=== PATIENT | female | born 1940 | race Caucasian/White ===

== ENCOUNTER 2018-10-02 20:10 | Inpatient (IN) | payer MEDICARE ==
[~2018-10-02] VITALS: Ht 170.2 cm; Wt 65.8 kg
[2018-10-02] MEDS ORDERED: Z GUARD REMEDY PASTE 57 GM TUBE TOP PRN (20:15)
[2018-10-02] MEDS ORDERED: POLY255P19 PO (20:28)
[2018-10-02] MEDS ORDERED: BRIM10DR6 LEFTEYE (20:28)
[2018-10-02] MEDS ORDERED: SENN-22 PO (20:28)
[2018-10-02] MEDS ORDERED: KETO15VI5 IV (20:28)
[2018-10-02] MEDS ORDERED: LATA2.5D7 EACHEYE (20:28)
[2018-10-02] MEDS ORDERED: ASPI-612 PO (20:28)
[2018-10-02 20:38] VITALS: BP 98/40
[2018-10-02] MEDS ORDERED: POLYETHYLENE GLYCOL 3350 238 GM POWDER PO PRN (21:00)
[2018-10-03] MEDS ORDERED: POLYETHYLENE GLYCOL 3350 238 GM POWDER PO PRN (07:15)
[2018-10-03] MEDS ORDERED: MIRALAX 17 GM POWD.PACK PO PRN (08:00)
[2018-10-03 08:54] VITALS: BP 92/43
[2018-10-03] MEDS: BRIMONIDINE 0.2% OPHT DROP 10 ML BOTTLE LEFTEYE SCH ×2 (09:08→17:35)
[2018-10-03] MEDS: LATANOPROST OPHT DROP 2.5 ML BOTTLE EACHEYE SCH (09:08)
[2018-10-03] MEDS: SENNOSIDES/DOCUSATE SODIUM TABLET PO SCH (09:09)
[2018-10-03] MEDS: ASPIRIN 325 MG TABLET PO SCH (09:09)
[2018-10-03] MEDS ORDERED: TRAMADOL HCL 50 MG TABLET PO PRN (09:45)
[2018-10-03 16:24] VITALS: BP_SYST 86; BP_SYST 96; BP_DIAS 43
[2018-10-03 20:29] VITALS: BP 108/54
[2018-10-03] MEDS: MELATONIN 3 MG TABLET PO SCH (21:00)
[2018-10-04 06:20] VITALS: BP 89/45
[2018-10-04 08:02] VITALS: BP 95/40
[2018-10-04] MEDS: LATANOPROST OPHT DROP 2.5 ML BOTTLE EACHEYE SCH (08:18)
[2018-10-04] MEDS: BRIMONIDINE 0.2% OPHT DROP 10 ML BOTTLE LEFTEYE SCH ×2 (08:18→17:02)
[2018-10-04] MEDS: SENNOSIDES/DOCUSATE SODIUM TABLET PO SCH (08:18)
[2018-10-04] MEDS: ASPIRIN 325 MG TABLET PO SCH (08:49)
[2018-10-04] MEDS: ACETAMINOPHEN 325 MG TABLET PO PRN (08:49)
[2018-10-04] MEDS: NEOMY/BACITRAC/POLYMI OINT 28.35 GM TUBE TOP SCH ×2 (12:58→20:30)
[2018-10-04 16:54] VITALS: BP 103/53
[2018-10-04 20:11] VITALS: BP 91/54
[2018-10-04] MEDS: MELATONIN 3 MG TABLET PO SCH (20:31)
[2018-10-05 05:27] VITALS: BP 103/45
[2018-10-05 07:24] LABS: BASOPHILS # (AUTO) 0.1 K/uL (0.0-8.0); EOSINOPHILS # (AUTO) 0.2 K/uL (0.0-0.7); EOSINOPHILS % (AUTO) 3.3 % (0.0-7.0); HEMOGLOBIN 10.7 g/dL (10.9-14.3); LYMPHOCYTES # (AUTO) 0.7 K/uL (20.0-40.0); LYMPHOCYTES % (AUTO) 12.7 % (20.5-51.5); MEAN CORPUSCULAR HEMOGLOBIN 31.7 uug (24.7-32.8); MEAN CORPUSCULAR HGB CONC 33 g/dL (32.3-35.6); MEAN CORPUSCULAR VOLUME 95.3 fL (75.5-95.3); MONOCYTES # (AUTO) 0.7 K/uL (2.0-10.0); MONOCYTES % (AUTO) 13.1 % (0.0-11.0); NEUTROPHILS # (AUTO) 3.7 K/uL (1.8-8.9); NEUTROPHILS % (AUTO) 69.9 % (38.5-71.5); PLATELET COUNT (AUTO) 207 K/uL (179-408); RED BLOOD CELL COUNT(AUTO) 3.36 MIL/uL (3.63-4.92); WHITE BLOOD COUNT (AUTO) 5.3 K/uL (3.8-11.8)
[2018-10-05 07:40] LABS: IRON, SERUM 37 ug/dL (50-175)
[2018-10-05 08:29] LABS: ALANINE AMINOTRANSFERASE 47 U/L (14-59); ALKALINE PHOSPHATASE 150 U/L (50-136); ASPARTATE AMINOTRANSFERASE 43 U/L (15-37); BILIRUBIN,TOTAL 0.8 mg/dL (0.2-1.0); CARBON DIOXIDE 26 mmol/L (21-32); CHLORIDE 105 mmol/L (98-107); CHOLESTEROL 189 mg/dL (<200); CREATININE 0.6 mg/dL (0.6-1.3); GLUCOSE 93 mg/dL (74-106); HDL CHOLESTEROL 57 mg/dL (40-60); PHOSPHOROUS 3.9 mg/dL (2.5-4.9); POTASSIUM 3.9 mmol/L (3.5-5.1); TOTAL PROTEIN, SERUM 6.2 g/dL (6.4-8.2); TRIGLYCERIDES 101 MG/DL (30-150); UREA NITROGEN, BLOOD 16 mg/dL (7-18)
[2018-10-05] MEDS: SENNOSIDES/DOCUSATE SODIUM TABLET PO SCH (08:32)
[2018-10-05] MEDS: ASPIRIN 325 MG TABLET PO SCH (08:32)
[2018-10-05] MEDS: BRIMONIDINE 0.2% OPHT DROP 10 ML BOTTLE LEFTEYE SCH ×2 (08:33→17:02)
[2018-10-05] MEDS: LATANOPROST OPHT DROP 2.5 ML BOTTLE EACHEYE SCH (08:34)
[2018-10-05] MEDS: NEOMY/BACITRAC/POLYMI OINT 28.35 GM TUBE TOP SCH ×2 (08:36→20:47)
[2018-10-05 08:56] LABS: THYROID STIMULATING HORMONE 3.807 mIU/mL (0.358-3.740)
[2018-10-05 09:02] VITALS: BP 114/51
[2018-10-05 16:43] VITALS: BP 94/48
[2018-10-05 19:45] VITALS: BP 106/64
[2018-10-05] MEDS: ATORVASTATIN 10 MG TABLET PO SCH (20:46)
[2018-10-05] MEDS: MELATONIN 3 MG TABLET PO SCH (20:46)
[2018-10-06 06:56] LABS: *BILIRUBIN,URIN NEGATIVE (NEGATIVE); *BLOOD, URINE NEGATIVE (NEGATIVE); *CLARITY,URINE CLEAR (CLEAR); *COLOR,URINE YELLOW (YELLOW); *KETONES,URINE NEGATIVE (NEGATIVE); *UROBILINOGEN,URINE 0.2 E.U./dl (NORMAL); LEUKOCYTE ESTERASE ,URINE NEGATIVE (NEGATIVE); NITRITE, URINE NEGATIVE (NEGATIVE); PH,URINE 5.5 (5.0-8.0); UGLUCOSE NEGATIVE (NEGATIVE)
[2018-10-06 07:24] VITALS: BP 106/46
[2018-10-06] MEDS: ASPIRIN 325 MG TABLET PO SCH (08:27)
[2018-10-06] MEDS: NEOMY/BACITRAC/POLYMI OINT 28.35 GM TUBE TOP SCH ×2 (08:28→20:08)
[2018-10-06] MEDS: BRIMONIDINE 0.2% OPHT DROP 10 ML BOTTLE LEFTEYE SCH ×2 (08:28→17:20)
[2018-10-06] MEDS: LATANOPROST OPHT DROP 2.5 ML BOTTLE EACHEYE SCH (08:28)
[2018-10-06] MEDS: SENNOSIDES/DOCUSATE SODIUM TABLET PO SCH (08:28)
[2018-10-06] MEDS: ACETAMINOPHEN 325 MG TABLET PO PRN ×2 (08:30→22:25)
[2018-10-06 09:30] VITALS: BP 98/50
[2018-10-06 18:36] VITALS: BP 117/59
[2018-10-06 19:46] VITALS: BP 104/42
[2018-10-06] MEDS: ATORVASTATIN 10 MG TABLET PO SCH (20:05)
[2018-10-06] MEDS: MELATONIN 3 MG TABLET PO SCH (20:06)
[2018-10-07 05:50] VITALS: BP 110/46
[2018-10-07 08:00] VITALS: BP 109/49
[2018-10-07] MEDS: ASPIRIN 325 MG TABLET PO SCH (08:28)
[2018-10-07] MEDS: SENNOSIDES/DOCUSATE SODIUM TABLET PO SCH (08:28)
[2018-10-07] MEDS: LATANOPROST OPHT DROP 2.5 ML BOTTLE EACHEYE SCH (08:29)
[2018-10-07] MEDS: BRIMONIDINE 0.2% OPHT DROP 10 ML BOTTLE LEFTEYE SCH ×2 (08:29→17:23)
[2018-10-07] MEDS: NEOMY/BACITRAC/POLYMI OINT 28.35 GM TUBE TOP SCH ×2 (08:31→21:01)
[2018-10-07 16:09] VITALS: BP 94/51
[2018-10-07 20:19] VITALS: BP 103/56
[2018-10-07] MEDS: ATORVASTATIN 10 MG TABLET PO SCH (21:00)
[2018-10-07] MEDS: MELATONIN 3 MG TABLET PO SCH (21:00)
[2018-10-08 05:43] VITALS: BP 94/55
[2018-10-08 08:00] VITALS: BP 100/58
[2018-10-08] MEDS: LATANOPROST OPHT DROP 2.5 ML BOTTLE EACHEYE SCH (08:40)
[2018-10-08] MEDS: ACETAMINOPHEN 325 MG TABLET PO PRN (08:40)
[2018-10-08] MEDS: BRIMONIDINE 0.2% OPHT DROP 10 ML BOTTLE LEFTEYE SCH ×2 (08:40→17:00)
[2018-10-08] MEDS: ASPIRIN 325 MG TABLET PO SCH (08:41)
[2018-10-08] MEDS: NEOMY/BACITRAC/POLYMI OINT 28.35 GM TUBE TOP SCH ×2 (08:42→20:52)
[2018-10-08] MEDS: SENNOSIDES/DOCUSATE SODIUM TABLET PO SCH (09:21)
[2018-10-08 19:40] VITALS: BP 113/46
[2018-10-08] MEDS: MELATONIN 3 MG TABLET PO SCH (20:52)
[2018-10-08] MEDS: ATORVASTATIN 10 MG TABLET PO SCH (20:52)
[2018-10-09 07:04] VITALS: BP 101/41
[2018-10-09 08:00] VITALS: BP 120/64
[2018-10-09] MEDS: LATANOPROST OPHT DROP 2.5 ML BOTTLE EACHEYE SCH (08:08)
[2018-10-09] MEDS: ASPIRIN 325 MG TABLET PO SCH (08:10)
[2018-10-09] MEDS: SENNOSIDES/DOCUSATE SODIUM TABLET PO SCH (08:10)
[2018-10-09] MEDS: NEOMY/BACITRAC/POLYMI OINT 28.35 GM TUBE TOP SCH ×2 (08:13→20:21)
[2018-10-09] MEDS: BRIMONIDINE 0.2% OPHT DROP 10 ML BOTTLE LEFTEYE SCH ×2 (08:29→18:25)
[2018-10-09 16:00] VITALS: BP 116/66
[2018-10-09 19:31] VITALS: BP 91/44
[2018-10-09 19:40] VITALS: BP 103/61
[2018-10-09] MEDS: MELATONIN 3 MG TABLET PO SCH (20:21)
[2018-10-09] MEDS: ATORVASTATIN 10 MG TABLET PO SCH (20:21)
[2018-10-10 05:48] VITALS: BP 109/44
[2018-10-10 08:00] VITALS: BP 101/50
[2018-10-10] MEDS: SENNOSIDES/DOCUSATE SODIUM TABLET PO SCH (08:08)
[2018-10-10] MEDS: ACETAMINOPHEN 325 MG TABLET PO PRN (08:08)
[2018-10-10] MEDS: BRIMONIDINE 0.2% OPHT DROP 10 ML BOTTLE LEFTEYE SCH ×2 (08:08→16:57)
[2018-10-10] MEDS: LATANOPROST OPHT DROP 2.5 ML BOTTLE EACHEYE SCH (08:09)
[2018-10-10] MEDS: NEOMY/BACITRAC/POLYMI OINT 28.35 GM TUBE TOP SCH ×2 (08:09→20:20)
[2018-10-10] MEDS: ASPIRIN 325 MG TABLET PO SCH (09:57)
[2018-10-10 16:17] VITALS: BP 113/52
[2018-10-10 20:19] VITALS: BP 102/44
[2018-10-10] MEDS: MELATONIN 3 MG TABLET PO SCH (20:20)
[2018-10-10] MEDS: ATORVASTATIN 10 MG TABLET PO SCH (20:20)
[2018-10-11 05:21] VITALS: BP 108/52
[2018-10-11] MEDS: SENNOSIDES/DOCUSATE SODIUM TABLET PO SCH (08:54)
[2018-10-11] MEDS: ASPIRIN 325 MG TABLET PO SCH (08:54)
[2018-10-11] MEDS: BRIMONIDINE 0.2% OPHT DROP 10 ML BOTTLE LEFTEYE SCH ×2 (08:56→17:59)
[2018-10-11] MEDS: NEOMY/BACITRAC/POLYMI OINT 28.35 GM TUBE TOP SCH ×2 (08:56→20:33)
[2018-10-11] MEDS: LATANOPROST OPHT DROP 2.5 ML BOTTLE EACHEYE SCH (08:56)
[2018-10-11 09:00] VITALS: BP 91/39
[2018-10-11 17:00] VITALS: BP 116/40
[2018-10-11 19:30] VITALS: BP 102/55
[2018-10-11] MEDS: MELATONIN 3 MG TABLET PO SCH (20:33)
[2018-10-11] MEDS: ATORVASTATIN 10 MG TABLET PO SCH (20:33)
[2018-10-12 06:04] VITALS: BP 99/49
[2018-10-12] MEDS: SENNOSIDES/DOCUSATE SODIUM TABLET PO SCH (08:34)
[2018-10-12] MEDS: BRIMONIDINE 0.2% OPHT DROP 10 ML BOTTLE LEFTEYE SCH ×2 (08:34→17:23)
[2018-10-12] MEDS: ASPIRIN 325 MG TABLET PO SCH (08:34)
[2018-10-12] MEDS: NEOMY/BACITRAC/POLYMI OINT 28.35 GM TUBE TOP SCH ×2 (08:35→20:16)
[2018-10-12] MEDS: LATANOPROST OPHT DROP 2.5 ML BOTTLE EACHEYE SCH (08:35)
[2018-10-12 09:16] VITALS: BP 110/43
[2018-10-12 15:54] VITALS: BP 103/54
[2018-10-12 19:35] VITALS: BP 103/60
[2018-10-12] MEDS: MELATONIN 3 MG TABLET PO SCH (20:15)
[2018-10-12] MEDS: ATORVASTATIN 10 MG TABLET PO SCH (20:15)
[2018-10-13 06:24] VITALS: BP 97/52
[2018-10-13 08:02] VITALS: BP 101/41
[2018-10-13] MEDS: SENNOSIDES/DOCUSATE SODIUM TABLET PO SCH (08:23)
[2018-10-13] MEDS: ASPIRIN 325 MG TABLET PO SCH (08:29)
[2018-10-13] MEDS: BRIMONIDINE 0.2% OPHT DROP 10 ML BOTTLE LEFTEYE SCH ×2 (08:30→16:54)
[2018-10-13] MEDS: NEOMY/BACITRAC/POLYMI OINT 28.35 GM TUBE TOP SCH ×2 (08:30→20:07)
[2018-10-13] MEDS: LATANOPROST OPHT DROP 2.5 ML BOTTLE EACHEYE SCH (08:30)
[2018-10-13] MEDS: ACETAMINOPHEN 325 MG TABLET PO PRN (08:33)
[2018-10-13 15:56] VITALS: BP 100/51
[2018-10-13] MEDS: ATORVASTATIN 10 MG TABLET PO SCH (20:07)
[2018-10-13] MEDS: MELATONIN 3 MG TABLET PO SCH (20:07)
[2018-10-13 20:29] VITALS: BP 98/45
[2018-10-14 06:07] VITALS: BP 96/45
[2018-10-14] MEDS: ASPIRIN 325 MG TABLET PO SCH (09:00)
[2018-10-14] MEDS: NEOMY/BACITRAC/POLYMI OINT 28.35 GM TUBE TOP SCH ×2 (09:00→20:32)
[2018-10-14] MEDS: SENNOSIDES/DOCUSATE SODIUM TABLET PO SCH (09:00)
[2018-10-14] MEDS: BRIMONIDINE 0.2% OPHT DROP 10 ML BOTTLE LEFTEYE SCH ×2 (09:56→17:38)
[2018-10-14] MEDS: ACETAMINOPHEN 325 MG TABLET PO PRN (12:49)
[2018-10-14 17:00] VITALS: BP 114/39
[2018-10-14 17:03] VITALS: BP 94/38
[2018-10-14] MEDS: CALCIUM CARBONATE 500 MG TAB.CHEW PO PRN (19:12)
[2018-10-14 19:45] VITALS: BP 100/44
[2018-10-14] MEDS: MELATONIN 3 MG TABLET PO SCH (20:56)
[2018-10-14] MEDS: ATORVASTATIN 10 MG TABLET PO SCH (20:56)
[2018-10-14] MEDS: LATANOPROST OPHT DROP 2.5 ML BOTTLE EACHEYE SCH (20:58)
[2018-10-15 06:40] VITALS: BP 107/46
[2018-10-15] MEDS: BRIMONIDINE 0.2% OPHT DROP 10 ML BOTTLE LEFTEYE SCH ×2 (08:26→17:09)
[2018-10-15] MEDS: ASPIRIN 325 MG TABLET PO SCH (08:26)
[2018-10-15] MEDS: NEOMY/BACITRAC/POLYMI OINT 28.35 GM TUBE TOP SCH ×2 (08:27→20:13)
[2018-10-15] MEDS: CALCIUM CARBONATE 500 MG TAB.CHEW PO PRN (08:27)
[2018-10-15] MEDS: SENNOSIDES/DOCUSATE SODIUM TABLET PO SCH (08:27)
[2018-10-15 09:00] VITALS: BP 96/56
[2018-10-15 17:53] VITALS: BP 123/63
[2018-10-15 19:49] VITALS: BP 99/48
[2018-10-15] MEDS: MELATONIN 3 MG TABLET PO SCH (20:12)
[2018-10-15] MEDS: ATORVASTATIN 10 MG TABLET PO SCH (20:12)
[2018-10-15] MEDS: LATANOPROST OPHT DROP 2.5 ML BOTTLE EACHEYE SCH (20:12)
[2018-10-16 06:04] VITALS: BP 90/48
[2018-10-16] MEDS: NEOMY/BACITRAC/POLYMI OINT 28.35 GM TUBE TOP SCH ×2 (08:26→21:00)
[2018-10-16] MEDS: ASPIRIN 325 MG TABLET PO SCH (08:26)
[2018-10-16] MEDS: BRIMONIDINE 0.2% OPHT DROP 10 ML BOTTLE LEFTEYE SCH ×2 (08:27→17:00)
[2018-10-16] MEDS: SENNOSIDES/DOCUSATE SODIUM TABLET PO SCH (08:27)
[2018-10-16 09:00] VITALS: BP 109/48
[2018-10-16] MEDS: CALCIUM CARBONATE 500 MG TAB.CHEW PO PRN (15:34)
[2018-10-16 18:40] VITALS: BP 101/64
[2018-10-16 19:25] VITALS: BP 119/79
[2018-10-16] MEDS: MELATONIN 3 MG TABLET PO SCH (21:00)
[2018-10-16] MEDS: ATORVASTATIN 10 MG TABLET PO SCH (21:00)
[2018-10-16] MEDS: LATANOPROST OPHT DROP 2.5 ML BOTTLE EACHEYE SCH (21:15)
[2018-10-17 06:05] VITALS: BP 94/42
[2018-10-17] MEDS: CALCIUM CARBONATE 500 MG TAB.CHEW PO PRN (08:28)
[2018-10-17] MEDS: SENNOSIDES/DOCUSATE SODIUM TABLET PO SCH (08:28)
[2018-10-17] MEDS: BRIMONIDINE 0.2% OPHT DROP 10 ML BOTTLE LEFTEYE SCH ×2 (08:28→17:06)
[2018-10-17] MEDS: ASPIRIN 325 MG TABLET PO SCH (08:28)
[2018-10-17] MEDS: NEOMY/BACITRAC/POLYMI OINT 28.35 GM TUBE TOP SCH ×2 (08:29→20:42)
[2018-10-17 09:00] VITALS: BP 103/50
[2018-10-17 20:41] VITALS: BP 90/42
[2018-10-17] MEDS: MELATONIN 3 MG TABLET PO SCH (20:42)
[2018-10-17] MEDS: ATORVASTATIN 10 MG TABLET PO SCH (20:42)
[2018-10-17] MEDS: LATANOPROST OPHT DROP 2.5 ML BOTTLE EACHEYE SCH (20:42)
[2018-10-18 06:15] VITALS: BP 98/46
[2018-10-18] MEDS: BRIMONIDINE 0.2% OPHT DROP 10 ML BOTTLE LEFTEYE SCH (08:10)
[2018-10-18] MEDS: ASPIRIN 325 MG TABLET PO SCH (08:11)
[2018-10-18] MEDS: SENNOSIDES/DOCUSATE SODIUM TABLET PO SCH (08:11)
[2018-10-18] MEDS: NEOMY/BACITRAC/POLYMI OINT 28.35 GM TUBE TOP SCH (08:11)
[2018-10-18] MEDS: ACETAMINOPHEN 325 MG TABLET PO PRN (08:26)
[2018-10-18 09:16] VITALS: BP 96/40
== END 2018-10-18 13:30 | disposition home health service (06) | DRG 560 ==
PROVIDERS: ADMIT Physical Medicine & Rehabilitation Pain Medicine; ATTEND Physical Medicine & Rehabilitation Pain Medicine
DX: S32.591D Other specified fracture of right pubis, subsequent encounter for fracture with routine healing (principal); D68.59 Other primary thrombophilia; W01.0XXD Fall on same level from slipping, tripping and stumbling without subsequent striking against object, subsequent encounter; S50.12XD Contusion of left forearm, subsequent encounter; Z96.643 Presence of artificial hip joint, bilateral; R26.9 Unspecified abnormalities of gait and mobility; M47.896 Other spondylosis, lumbar region; D63.8 Anemia in other chronic diseases classified elsewhere; E03.9 Hypothyroidism, unspecified; E78.5 Hyperlipidemia, unspecified; G89.29 Other chronic pain; M19.90 Unspecified osteoarthritis, unspecified site; H40.9 Unspecified glaucoma; R53.1 Weakness; Z88.0 Allergy status to penicillin
CPT/HCPCS: 36415; 72170; 82652; 83550; 83735; 84100; 84443; 84481; 85025; 87086; 92523; 92526; 92610; 97110; 97112; 97116; 97530; 97535; A4663